=== PATIENT | female | born 1990 | race African-American/Black ===

== ENCOUNTER 2022-11-16 09:23 | Emergency (ER) | payer OTHER, SELFPAY ==
[2022-11-16 09:30] VITALS: BP 150/87; PULSE 69; RESP 15; TEMP 37; O2SAT 100
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
--- NOTE | 2022-11-16 09:55 | PC.NURSE ---
pt denies any symptoms of STDs. pt denies all SANE interventions
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
[2022-11-16] MEDS: ONDANSETRON HCL ODT 4 MG TABLET PO (10:22)
[2022-11-16] MEDS: metroNIDAZOLE 250 MG TABLET 2000 MG PO (10:22)
[2022-11-16] MEDS: cefTRIAXone 1 GM VIAL 0.5 GM IM (10:26)
[2022-11-16] MEDS: LIDOCAINE HCL 1% LOCAL INJ 10 ML VIAL (10:26)
[2022-11-16 10:47] LABS: Appearance Urine Cloudy (Clear); Bacteria Urine None Seen /hpf; Bilirubin Urine Negative (Negative); Blood Urine Trace (Negative); Color Urine Yellow (Yellow); Glucose Urine UA Negative (Negative); Ketones Urine Negative (Negative); Leukocyte Esterase Ur Trace LEU/UL (Negative); Need Manual Microscopic Reviewed; Nitrate Urine Negative (Negative); Non Pathogenic Casts 0-2; Protein Urine Negative (Negative); RBC Urine 0-2 /hpf (0-2); Specific Grav Ur 1.027 (1.001-1.035); Squamous Epithelial Cell Urine Few /hpf (Few); Urobilinogen Urine 0.2 mg/dL (<2.0); pH Urine 5.5 (5.0-9.0)
[2022-11-16 10:48] LABS: Add Urine Microscopic? YES
== END 2022-11-16 10:47 | disposition home or self-care (01) ==
PROVIDERS: Emergency Provider Physician Assistant
DX: Z20.2 Contact with and (suspected) exposure to infections with a predominantly sexual mode of transmission (principal)
CPT/HCPCS: 81001; 87070; 87086; 87088; 87491; 87591; 87808; 96372; 99283; 99284; A9270; J0696